=== PATIENT | male | born 2000 | race Caucasian/White ===

== ENCOUNTER 2023-12-07 16:18 | Emergency (ER) | payer OTHER, SELFPAY ==
[2023-12-07 16:23] VITALS: BP 0/0; BP 126/77; PULSE 0; PULSE 114; RESP 0; TEMP -17.7; TEMP 0; O2SAT 0; O2SAT 94; BMI 34.8
--- NOTE | 2023-12-07 16:32 | PC.NURSE ---
Pt. refusing vital signs. Taking shoes off and slamming them on the floor. Stating I can't believe that mother alberto called on me, I don't want to be here. I'm leaving and I'm not taking any seizure medications. I don't believe in them and I don't want to be here . This RN explained to pt. that although he is frustrated, it's important to get checked out after having a seizure because some seizures can potentially be fatal if uncontrolled. Pt. states that he will not take medications and just wants to be discharged.
--- NOTE | 2023-12-07 16:54 | ED_ITS ---
HPI - Seizure General Chief Complaint: Seizure Stated Complaint: seizure,hx of seizures but non med compliant Time Seen by Provider: 12/07/23 16:19 Source: patient Limitations: no limitations History of Present Illness ED Provider: Monica Castellano PA-C HPI Narrative: 23-year-old male with new onset seizure disorder, recent diagnosis of Hodgkin's lymphoma, presents after a seizure at home. Per EMS, the patient's family heard a ?thump?, from upstairs, they found the patient on the floor seizing. Episode was brief, the patient was postictal upon their arrival. When patient arrives to the Emergency Department, he is displeased, he is declining treatment. I asked the patient if he was suicidal, he emphatically denies, he states ?I do not want any treatment I do not trust the pills?. To note, the patient readily admits that he is not adherent with the Keppra he has been prescribed, he refused to take it. Furthermore, he did initially receive chemotherapy for his lymphoma, he now declines further treatment. Related Data Allergies Allergy/AdvReac Type Severity Reaction Status Date / Time No Known Allergies Allergy Verified 12/07/23 16:26 Review of Systems Review of Systems: Unable to complete as the patient is unwilling to engage in extensive conversation Yes all other systems are reviewed and are negative PMFSH Past Medical History Attestation statement: The following information was validated with the patient. Social History Social History Advance Directives: No Advance Directives Information Provided: No Do you have a plan to hurt others: No Plan Physical Exam Vital Signs: Vital Signs: Last Vital Signs Temp 0 F L 12/07/23 16:23 Pulse 0 L 12/07/23 16:23 Resp 0 L 12/07/23 16:23 BP 0/0 L 12/07/23 16:23 Pulse Ox 0 L 12/07/23 16:23 BMI result Body Mass Index 34.8 Const: Other: Alert, overall well in appearance, no obvious signs of head trauma on exam Orientation/consciousness: patient oriented x3 Neck: Other: Patient moving his neck with these, not allowing for an exam Resp: Effort & Inspection: normal respiratory effort Skin: Other: Warm dry no rash Neuro: General: patient oriented x3, no focal motor deficits and CN's II-XI intact bilaterally Extrem: Other: Patient has been up and ambulatory walking with a normal steady gait, Psych: Other: Initially patient was hostile and belligerent upon arrival, he was easily deescalated once we started talking, he has been cooperative for me Medical Decision Making Medical Decision Making MDM Narrative: 23-year-old male with new onset seizure disorder, recent diagnosis of Hodgkin's lymphoma, presents after a seizure at home. Per EMS, the patient's family heard a ?thump?, from upstairs, they found the patient on the floor seizing. Episode was brief, the patient was postictal upon their arrival. When patient arrives to the Emergency Department, he is displeased, he is declining treatment. I asked the patient if he was suicidal, he emphatically denies, he states ?I do not want any treatment I do not trust the pills?. To note, the patient readily admits that he is not adherent with the Keppra he has been prescribed, he re fused to take it. Furthermore, he did initially receive chemotherapy for his lymphoma, he now declines further treatment. Abdomen: Lymphoma, new seizure disorder, non adherence with medication History: Per patient and EMS I have considered the following differential diagnoses: Breakthrough seizure, intracranial hemorrhage, cervical spine injury, SI Plan: I can not hold the patient against his will, he is alert and oriented, he has the right to decline treatment. I have explained at length the consequence of not managing a seizure disorder. I have placed this information in the against medical advice form....... He verbalizes understanding I did offer a CT scan of his head and cervical spine given unwitnessed fall, he declines imaging as well Discharge Plan Discharge Clinical Impression: New onset seizure Patient Disposition: Left Against Medical Advice Instructions: New-Onset Seizure in Adults (ED) Additional Instructions: We will send to leave against medical advice. We offered a CT scan of your brain, it was questionable whether you struck her head when you fell while having a seizure. Please know that you can return to the emergency department at any time to complete treatment. Stand Alone Forms: Against Medical Advice Print Language: Tuvaluan
[2023-12-07 17:32] VITALS: BP 0/0; PULSE 0; RESP 0; TEMP -17.7; TEMP 0; O2SAT 0
--- NOTE | 2023-12-07 17:33 | PC.NURSE ---
MICHAEL Henry in pt.'s room with this RN fully explaining the risks of leaving AMA. Pt. verbalizes understanding of risks, pt. is AOx4.
== END 2023-12-07 21:04 | disposition left against medical advice (07) ==
PROVIDERS: Emergency Provider Internal Medicine
DX: R56.9 Unspecified convulsions (principal)
CPT/HCPCS: 99282